=== PATIENT | female | born 1970 | race Caucasian/White ===

== ENCOUNTER 2016-10-14 09:20 | Inpatient (IN) | payer OTHER ==
[2016-10-10 11:51] VITALS: BMI 50.3
[2016-10-14] MEDS ORDERED: ceFAZolin SODIUM 1 GM VIAL ONE (11:21)
[2016-10-14] MEDS ORDERED: LIDOCAINE HCL/PF 2% SDV 5ML VIAL ONE (11:21)
[2016-10-14] MEDS ORDERED: MIDAZOLAM HCL 2 MG/2 ML SINGLE DOSE VIAL ONE (11:22)
[2016-10-14] MEDS ORDERED: ROCURONIUM BROMIDE 50 MG/5 ML VIAL ONE ×2 (11:22→12:59)
[2016-10-14] MEDS ORDERED: PROPOFOL 20 ML ONE ×2 (11:22)
--- NOTE | 2016-10-14 12:12 | HP ---
Admitting History and Physical - Admission Chief Complaint: Morbid Obesity History of Present Illness: 46 female with morbid obesity presents for a Robotic laparoscopic possible open vertical sleeve gastrectomy History Source: Patient Limitations to Obtaining History: No Limitations - Past Medical History ...LMP Comment: 2YRS AGO - Past Surgical History Past Surgical History: Yes: Cholecystectomy - Smoking History Smoking history: Never smoked - Alcohol/Substance Use Hx Alcohol Use: No Home Medications - Allergies Allergies/Adverse Reactions: Allergies Allergy/AdvReac Type Severity Reaction Status Date / Time No Known Allergies Allergy Verified 10/14/16 10:01 - Home Medications Home Medications: Ambulatory Orders Acetaminophen [Tylenol] 325 mg PO PRN PRN 10/10/16 Family Disease History - Family Disease History Family History: Unremarkable Review of Systems - Review of Systems Constitutional: denies: Chills, Fever Cardiovascular: denies: Chest Pain Respiratory: denies: Cough Gastrointestinal: reports: No Symptoms. denies: Abdominal Pain Genitourinary: reports: No Symptoms Neurological: reports: No Symptoms. denies: Change in LOC Pain Intensity: 0 Physical Examination Vital Signs: Vital Signs Temperature 97.9 F 10/14/16 09:59 Pulse Rate 100 H 10/14/16 09:59 Respiratory Rate 20 10/14/16 09:59 Blood Pressure 137/79 10/14/16 09:59 O2 Sat by Pulse Oximetry (%) 96 10/14/16 09:59 Constitutional: Yes: Calm, Obese Neck: Yes: WNL, Supple Cardiovascular: Yes: Regular Rate and Rhythm Respiratory: Yes: WNL, CTA Bilaterally Gastrointestinal: Yes: WNL, Soft, Abdomen, Obese Neurological: Yes: Alert, Oriented Problem List - Problems (1) Morbid obesity due to excess calories Code(s): E66.01 - MORBID (SEVERE) OBESITY DUE TO EXCESS CALORIES Assessment/Plan Morbid Obesity For Robotic laparoscopic possible open vertical sleeve gastrectomy Risks and benefits explained Understands and agrees
[2016-10-14] MEDS ORDERED: ceFAZolin SODIUM 1 GM VIAL IVPB ONE (12:24)
[2016-10-14] MEDS ORDERED: DEXAMETHASONE SOD PHOSPHATE 4 MG/1 ML VIAL ONE (13:04)
[2016-10-14] MEDS ORDERED: GLYCOPYRROLATE 0.2 MG/1 ML VIAL ONE (14:06)
[2016-10-14] MEDS ORDERED: NEOSTIGMINE METHYLSULFATE 0.5 MG/ML - 10 ML MDV ONE (14:06)
[2016-10-14] MEDS ORDERED: KETOROLAC TROMETHAMINE 30 MG/1 ML VIAL ONE (14:48)
--- NOTE | 2016-10-14 15:02 | OP ---
Operative Note - Note: Operative Date: 10/14/16 Pre-Operative Diagnosis: Morbid obesity Operation: Robotic sleeve gastrectomy Post-Operative Diagnosis: Same as Pre-op Surgeon: Joseph Peñaloza Pump Technician: Matias Barker Anesthesiologist/RUNNER MAN: Kathryn Tam Anesthesia: General Specimens Removed: Greater curvature of stomach Estimated Blood Loss (mls): 50 Drains, Volume Out (mls): 150 Fluid Volume Replaced (mls): 1,000 Operative Report Dictated: Yes
--- NOTE | 2016-10-14 15:03 | SURG ---
Surgery Real Time Analyst Note Real Time Analyst: Matias Barker PA-C Date of Service: 10/14/16 Diagnosis: Morbid obesity Procedure: Robotic sleeve gastrectomy I was present for the entirety of the operative procedure. For further detail, please refer to operative report. Visit type - Case Type Case Type: Scheduled Admission - New patient This patient is new to me today: Yes Date on this admission: 10/14/16
[2016-10-14] MEDS ORDERED: HYDROmorphone HCL CARPU-JECT 2 MG/1 ML DISP.SYRIN IVPUSH PRN (15:14)
[2016-10-14] MEDS ORDERED: ONDANSETRON 4 MG/2 ML VIAL IVPUSH PRN (15:14)
[2016-10-14] MEDS ORDERED: ACETAMINOPHEN 1000 MG/100 ML VIAL (NON FORMULARY) IVPB PRN (15:15)
[2016-10-14] MEDS ORDERED: LACTATED RINGERS SOLUTION 1,000 ML IV SCH (15:15)
[2016-10-14] MEDS ORDERED: BUPIVACAINE HCL/PF 0.5% (5MG/ML) 10 ML VIAL IJ ONE (15:17)
[2016-10-14] MEDS ORDERED: HYDROmorphone HCL CARPU-JECT 1 MG/1 ML DISP.SYRIN IVPB PRN (15:22)
[2016-10-14] MEDS ORDERED: ONDANSETRON 4 MG/2 ML VIAL IVPB SCH (15:30)
[2016-10-14] MEDS ORDERED: METOCLOPRAMIDE HCL INJECTION 10 MG/2 ML VIAL IVPB SCH (15:30)
[2016-10-14] MEDS ORDERED: SODIUM CHLORIDE 1,000 ML IV SCH ×2 (15:30→16:19)
[2016-10-14] MEDS: ACETAMINOPHEN 1000 MG/100 ML VIAL (NON FORMULARY) IVPB SCH ×2 (15:35→21:15)
[2016-10-14] MEDS ORDERED: ACETAMINOPHEN 1000 MG/100 ML VIAL (NON FORMULARY) IVPB SCH (16:19)
[2016-10-14 16:30] LABS: MCH 27.4 pg (25.7-33.7); MCHC 32.8 g/dl (32.0-36.0); MEAN CELL VOLUME 83.5 fl (80-96); MEAN PLT VOLUME 7.2 fl (7.5-11.1); PLATELET COUNT 273 K/MM3 (134-434); RDW 15.2 % (11.6-15.6); WHITE BLOOD COUNT 27.6 K/mm3 (4.0-10.0)
[2016-10-14 17:10] LABS: ALBUMIN 3.8 g/dl (3.4-5.0); BILIRUBIN,TOTAL 0.4 mg/dL (0.2-1.0); CALCIUM 8.5 mg/dL (8.5-10.1); TOT PROT 7.4 g/dl (6.4-8.2)
[2016-10-14 17:27] LABS: PLATELET ESTIMATE ADEQUATE (NORMAL)
[2016-10-14] MEDS ORDERED: ACETAMINOPHEN INJECTION 100 ML IVPB ONE (17:28)
[2016-10-14] MEDS ORDERED: METOCLOPRAMIDE HCL INJECTION 10 MG/2 ML VIAL ONE (17:28)
[2016-10-14] MEDS: METOCLOPRAMIDE HCL INJECTION 10 MG/2 ML VIAL IVPB SCH ×2 (17:47→22:54)
[2016-10-14] MEDS: HYDROmorphone HCL CARPU-JECT 1 MG/1 ML DISP.SYRIN IVPB PRN (20:18)
[2016-10-14] MEDS: ONDANSETRON 4 MG/2 ML VIAL IVPB SCH ×2 (20:45→21:05)
[2016-10-14] MEDS: FAMOTIDINE 20 MG/50 ML IVPB 50 ML IVPB SCH (21:15)
[2016-10-14] MEDS: ENOXAPARIN NA (PORCINE) 40 MG/0.4 ML DISP.SYRIN SQ SCH (21:15)
[2016-10-14 21:47] LABS: MCH 27.5 pg (25.7-33.7); MEAN CELL VOLUME 83.1 fl (80-96); PLATELET COUNT 264 K/MM3 (134-434); RDW 15.2 % (11.6-15.6); WHITE BLOOD COUNT 22.5 K/mm3 (4.0-10.0)
[2016-10-14] MEDS ORDERED: FAMOTIDINE 20 MG/50 ML IVPB 50 ML IVPB SCH (22:00)
[2016-10-14] MEDS ORDERED: ENOXAPARIN NA (PORCINE) 40 MG/0.4 ML DISP.SYRIN SQ SCH (22:00)
[2016-10-14 22:11] LABS: PLATELET ESTIMATE ADEQUATE (NORMAL)
[2016-10-15] MEDS: ONDANSETRON 4 MG/2 ML VIAL IVPB SCH ×6 (00:20→20:10)
--- NOTE | 2016-10-15 01:03 | SPEC ---
DATE OF OPERATION: 10/14/2016 SURGEON: Joseph Peñaloza M.D. EMPLOYEE COMMUNICATIONS SPECIALIST: Brian Thacker PREOPERATIVE DIAGNOSIS: Morbid obesity. POSTOPERATIVE DIAGNOSIS: Morbid obesity. PROCEDURE: Robotic vertical sleeve gastrectomy. SPECIMEN: Greater curvature of the stomach. ESTIMATED BLOOD LOSS: 150 mL. DRAINS: None. ANESTHESIA: GET. REASON FOR PROCEDURE: This is a 38-year-old female who presented to the office for evaluation for morbid obesity. After discussing the various choices, she decided to proceed with a robotic possible open vertical sleeve gastrectomy. RISKS AND BENEFITS: After describing the different options for management of weight loss, the patient decided to proceed with a robotic laparoscopic, possible open vertical sleeve gastrectomy. The patient was seen by the respective subspecialties and cleared for surgery. The risks and benefits of the procedure were explained. These included bleeding, infection, hernia, NM, DVT, PE, injury to surrounding structures including the liver, colon, bowel, spleen, esophagus, vessel injury, nerve injury, weight regain, gastric leak, staple line leak, sleeve leak, obstruction, vitamin deficiency, hair loss, and as some of the possible complications. The patient understood and signed informed consent. DESCRIPTION OF PROCEDURE: The patient was placed supine on the operating room table. The patient underwent general endotracheal intubation. A Loo catheter was inserted by the nursing staff. The arms were brought out at 90 degrees and secured. A foot board was placed, and the legs were secured laterally with padding. The abdomen was prepped and draped in the usual sterile fashion. Timeout was performed. An incision was made superior and to the left of the umbilicus. A Veress needle was inserted. Pneumoperitoneum was established. Subsequently, the Veress needle was removed. An 8-mm optical robotic trocar was placed under direct visualization with the laparoscope. Inspection of the abdominal cavity was performed. An 8-mm trocar was then placed in the left abdominal wall approximately 6 to 7 cm to the left of the initial trocar. A 12-mm robotic trocar was then placed in the right abdominal wall approximately 6 to 7 cm to the right of the initial trocar and an 8-mm robotic trocar placed 6 to 7 cm lateral to the 12-mm trocar. A stab wound was made in the subxiphoid area and a My clamp inserted and removed to dilate the tract. A Keiry liver retractor was inserted. The post was secured at the bedside by the nursing staff. The patient was placed in steep reverse Trendelenburg position, and the Keiry liver retractor was used to secure the liver towards the anterior abdominal wall. The robot was brought over the field and docked. Dissection was then performed at the console. The pylorus was identified and 6 cm proximal to it, the lesser sac was entered using the vessel sealer. From this point cephalad, all lateral attachments to the greater curvature of the stomach, including the short gastric vessels, were ligated using the vessel sealer towards the gastrosplenic and gastrophrenic ligaments. Once this was done in its entirety, all tubes within the nasal or oropharyngeal cavity, including a temperature probe, were confirmed to have been removed by Anesthesia. The bougie was then inserted by Anesthesia. Transection of the stomach was then begun, staying adjacent to the bougie but away from the angularis. Transection of the stomach was performed near the portion of the stomach where the lesser sac was entered. Two robotic green mendez were used at this location. Robotic blue mendez were then used for the remainder of the transection until the greater curvature of the stomach was fully transected. Again, this was done staying close to the bougie. Care was taken to stay away from the angle of His cephalad. The staple line was then inspected. Hemostasis was identified. A leak test was then performed. The stomach was clamped distally to the staple line. Irrigation solution was placed in the left upper quadrant and air insufflated by Anesthesia into the sleeve. No leaks were identified and no obstruction was identified. This was done throughout the entirety of the staple line. At this point, the irrigation solution was suctioned and again hemostasis noted. The robotic instruments were then removed. The robot was undocked and removed from the operative field. The 12-mm robotic trocar was removed and the specimen removed from this site using a sponge stick scott. The specimen was inspected and the Veress needle inserted. The specimen insufflated adequately and no leak was identified. The staple line was noted to be straight and intact. A Cristóbal-Navin device was then used to close the fascia with a 0 Vicryl suture at this site. The liver retractor was removed under direct visualization. Pneumoperitoneum was desufflated, and the fascial suture was secured. Hemostasis was noted at all incision sites, and Marcaine was injected at all incision sites. All incision sites were closed using 4-0 Biosyn. Sterile dressings were applied. The patient tolerated the procedure well and was transferred to the recovery room in stable condition, with the Loo catheter intact. The patient was sent to the telemetry unit for monitoring. Xin VACA/[id number]
[2016-10-15] MEDS: ACETAMINOPHEN 1000 MG/100 ML VIAL (NON FORMULARY) IVPB SCH ×2 (03:23→10:00)
[2016-10-15] MEDS: METOCLOPRAMIDE HCL INJECTION 10 MG/2 ML VIAL IVPB SCH ×4 (05:12→22:09)
[2016-10-15 07:00] LABS: MCH 27.5 pg (25.7-33.7); MEAN CELL VOLUME 83.4 fl (80-96); MEAN PLT VOLUME 7.4 fl (7.5-11.1); PLATELET COUNT 287 K/MM3 (134-434); RDW 15.4 % (11.6-15.6); WHITE BLOOD COUNT 19.4 K/mm3 (4.0-10.0)
[2016-10-15 07:05] LABS: ALBUMIN 3.5 g/dl (3.4-5.0); ANION GAP 10 (8-16); CALCIUM 8.1 mg/dL (8.5-10.1); CO2 24 mmol/L (21-32); GLUCOSE,RANDOM 121 mg/dL (74-106)
[2016-10-15 07:08] LABS: ALK PHOS 63 U/L (45-117); BILIRUBIN,TOTAL 0.5 mg/dL (0.2-1.0); CREATININE 0.8 mg/dL (0.55-1.02); SGOT/AST 38 U/L (15-37); SGPT/ALT 21 U/L (12-78); TOT PROT 6.9 g/dl (6.4-8.2)
[2016-10-15] MEDS: HYDROmorphone HCL CARPU-JECT 1 MG/1 ML DISP.SYRIN IVPB PRN (07:35)
--- NOTE | 2016-10-15 07:59 | PN ---
Progress Note, Physician Chief Complaint: Pt. pain controlled with IV Dilaudid, no GA complaints. - Current Medication List Current Medications: Active Medications Acetaminophen (Ofirmev Injection -) 1,000 mg IVPB Q6H PRN PRN Reason: FEVER OR PAIN Stop: 10/15/16 09:16 Acetaminophen (Ofirmev Injection -) 1,000 mg IVPB Q6H [facility] Stop: 10/15/16 09:31 Last Admin: 10/15/16 03:23 Dose: 1,000 mg Enoxaparin Sodium (Lovenox -) 40 mg SQ BID [facility] Last Admin: 10/14/16 21:15 Dose: 40 mg Hydromorphone HCl (Dilaudid Injection -) 2 mg IVPUSH [id number] PRN PRN Reason: PAIN Stop: 10/17/16 15:15 Last Admin: 10/14/16 15:30 Dose: 2 mg Hydromorphone HCl (Dilaudid Injection -) 1 mg IVPB Q3H PRN PRN Reason: PAIN Last Admin: 10/15/16 07:35 Dose: 1 mg Famotidine/Sodium Chloride (Pepcid 20 Mg Premixed Ivpb -) 50 mls @ 100 mls/hr IVPB BID [facility] Last Admin: 10/14/16 21:15 Dose: 100 mls/hr Sodium Chloride (Normal Saline -) 1,000 mls @ 150 mls/hr IV ASDIR [facility] Last Admin: 10/14/16 16:26 Dose: 190 mls Metoclopramide HCl (Reglan Injection -) 10 mg IVPB Q6H [facility] Last Admin: 10/15/16 05:12 Dose: 10 mg Ondansetron HCl (Zofran Injection) 4 mg IVPB Q4H [facility] Last Admin: 10/15/16 05:12 Dose: 4 mg - Objective Vital Signs: Vital Signs Temperature 99.7 F H 10/15/16 06:00 Pulse Rate 92 H 10/15/16 06:00 Respiratory Rate 20 10/15/16 06:00 Blood Pressure 148/84 10/15/16 06:00 O2 Sat by Pulse Oximetry (%) 95 10/14/16 21:00 Constitutional: Yes: Well Nourished, No Distress, Calm Musculoskeletal: Yes: WNL Neurological: Yes: WNL, Alert, Oriented ...Motor Strength: WNL Labs: CBC, BMP 10/15/16 05:35 10/15/16 05:35 Assessment/Plan POD#1 s/p Robotic laparoscopic gastric sleeve under GA. Doing well. D/C from anesthesia care.
[2016-10-15] MEDS: ENOXAPARIN NA (PORCINE) 40 MG/0.4 ML DISP.SYRIN SQ SCH ×2 (10:16→21:22)
[2016-10-15] MEDS: FAMOTIDINE 20 MG/50 ML IVPB 50 ML IVPB SCH ×2 (11:00→21:22)
[2016-10-15] MEDS ORDERED: SODIUM CHLORIDE 1,000 ML IV SCH (12:15)
--- NOTE | 2016-10-15 12:42 | PN ---
Progress Note (short form) - Note Progress Note: POD#1 Pt without complaints. No CP/SOB. She denies any nausea or emesis. No flatus. Vital Signs Period Temp Pulse Resp BP Sys/Vitale Pulse Ox Last 24 Hr 97.1 F-99.7 F 86-106 14-20 104-165/67-97 94-99 uop-700 ml clear/yellow urine PE; GEN: aoert, oob to chair and appears comfortable CV: RRR Lungs: CTA b/l anteriorly ABD: soft, non-distended, inc tenderness. Inc c/d/i with dermabond LE: Bola in place, no tenderness or swelling note b/l CBC, BMP 03/21/17 05:35 //17 05:35 UGI-no obstruction. dilated esophagus. A/P: 46 yo female, s/p robotic sleeve gastrectomy S/w Dr. Peñaloza and POD#1 diet ordered to start, may decrease IVF to 75ml/hr discontinue forbes for TOV Dr. Peñaloza ordered repeat cbc for later today to trend the WBC. DVT ppx with lovenox SQ <Yessica Craig - Last Filed: 10/15/16 13:05> - Note Progress Note: Agree POD 1 Robotic vertical sleeve gastrectomy No pain No nausea AVSS Abd soft WBC improved- 27->22->19 UGI- no leak/obstruction OOB D/C forbes CBC in am- if WBC stable, will D/C home <Joseph Peñaloza - Last Filed: 10/15/16 22:27> Problem List - Problems (1) Morbid obesity due to excess calories Code(s): E66.01 - MORBID (SEVERE) OBESITY DUE TO EXCESS CALORIES <Joseph Peñaloza - Last Filed: 10/15/16 22:27>
[2016-10-15] MEDS: ACETAMINOPHEN 325 MG TABLET (FP) PO PRN ×2 (14:02→20:15)
[2016-10-15] MEDS: oxyCODONE HCL 5 MG TABLET PO PRN ×2 (14:02→20:12)
[2016-10-15 15:03] LABS: MCH 27.4 pg (25.7-33.7); MCHC 32.3 g/dl (32.0-36.0); MEAN CELL VOLUME 84.6 fl (80-96); MEAN PLT VOLUME 6.9 fl (7.5-11.1); PLATELET COUNT 233 K/MM3 (134-434); RDW 15.3 % (11.6-15.6); WHITE BLOOD COUNT 19.1 K/mm3 (4.0-10.0)
[2016-10-16] MEDS: ONDANSETRON 4 MG/2 ML VIAL IVPB SCH ×3 (00:36→08:17)
[2016-10-16] MEDS: oxyCODONE HCL 5 MG TABLET PO PRN (03:13)
[2016-10-16] MEDS: ACETAMINOPHEN 325 MG TABLET (FP) PO PRN (03:17)
[2016-10-16] MEDS: METOCLOPRAMIDE HCL INJECTION 10 MG/2 ML VIAL IVPB SCH (04:22)
[2016-10-16 06:11] VITALS: PULSE 85
[2016-10-16 07:32] LABS: BASOPHIL 0.4 % (0-2.0); EOSINOPHIL 1.3 % (0-4.5); MCHC 33.2 g/dl (32.0-36.0); MEAN CELL VOLUME 84.4 fl (80-96); MEAN PLT VOLUME 7.1 fl (7.5-11.1); NEUTROPHILS 75.2 % (42.8-82.8); PLATELET COUNT 230 K/MM3 (134-434); RDW 15.4 % (11.6-15.6); WHITE BLOOD COUNT 15.7 K/mm3 (4.0-10.0)
--- NOTE | 2016-10-16 08:47 | DS ---
Physical Examination Vital Signs: Vital Signs Temperature 98.0 F 10/16/16 06:00 Pulse Rate 85 10/16/16 06:00 Respiratory Rate 20 10/16/16 06:00 Blood Pressure 138/84 10/16/16 06:00 O2 Sat by Pulse Oximetry (%) 95 10/15/16 21:00 Constitutional: Yes: Calm Neck: Yes: Supple Cardiovascular: Yes: Regular Rate and Rhythm Respiratory: Yes: CTA Bilaterally Gastrointestinal: Yes: Soft Wound/Incision: Yes: Clean/Dry Neurological: Yes: Alert, Oriented Labs: CBC, BMP 10/16/16 06:00 10/15/16 05:35 Discharge Summary Reason For Visit: MORBID OBESITY Current Active Problems Morbid obesity due to excess calories (Acute) Procedures: Principal: Robotic vertical sleeve gastrectomy Condition: Stable - Instructions Diet, Activity, Other Instructions: Sultana Peñaloza M.D. [address] [place] [address] Robotic, Bariatric and General Surgery Postoperative Instructions for Bariatric Surgery Activity: Resume normal everyday activity as tolerated. You may walk and climb stairs without any limitation. We encourage you to walk as often as you can Do not lift anything more than 10 pounds for 8 weeks. At that time, you can return to full activity, including the gym, without limitation. Do not drive a motor vehicle while taking prescribes narcotic pain medication. Wound Care: If you have a bandage in place, leave it on for 3 days. At that time you may remove the outer bandage. If there are strips of tape on the skin after removing the outer bandage, leave them in place. They will fall off by themselves. Do not remove them. If there is clear glue on the skin after removing the outer bandage, leave it in place. Do not pick at it or peel it off. You may shower after taking the outer bandage off, 3 days after your surgery. If incisions become red, warm or open, please call the office. Diet: Continue a sugar-free, non-carbonated clear liquid diet three times a day for the first week-Stage 1 diet. In addition, you should drink 8 ounces of water every hour. When drinking, sips should be slow and steady, not large and quick. After the first week, call the office to be advanced to the next dietary stage. Do not advance stages until instructed by , or one of the Nurse Practitioners. You diet will be advanced over the phone each week. Medications/Pain Management: You may resume previous medications unless told otherwise. The pills may be swallowed whole or broken if scored. You may take the prescribed narcotic pain medication as needed. If the narcotic medication is not needed for pain control, you may take Tylenol. Avoid all other pain medications including Advil, Ibuprofen, Motrin, Aspirin, Naprosyn, Aleve, Celebrex. You will receive Pepcid. Please take this twice a day as prescribed. Dizziness,Headaches/Gas Pain: Make sure you are getting enough fluids daily. Patients on diuretics or water pills may need medication adjusted. Some fluids such as broth or Gatorade may help. Gas pains are common in the first few weeks after surgery. At times they can be worse than surgical pain. Walking can help. You can also use Mylanta, Maalox, or Gas-X. Vomiting/Nausea: This may occur if you eat too fast, don't chew, or eat too much. Go back to fluids. If the vomiting or nausea persists, call the office. Constipation/Diarrhea: You may experience a change in bowel habits. Many things affect this, including a decrease in food intake, not enough fluid and taking pain medication. Some people experience diarrhea after the barium swallow in x-ray. If either persist, call the office. Follow up: Call the office at [phone] for an appointment 2 weeks after you surgical procedure. Disposition: HOME - Home Medications Comprehensive Discharge Medication List: Ambulatory Orders Acetaminophen [Tylenol] 325 mg PO PRN PRN 10/10/16 Famotidine [Pepcid] 20 mg PO BID #60 tablet 10/14/16 Oxycodone HCl/Acetaminophen [Percocet 5-325 mg Tablet] 1 - 2 tab PO Q6H #28 tab MDD 4 10/14/16
[2016-10-16] MEDS: FAMOTIDINE 20 MG/50 ML IVPB 50 ML IVPB SCH (09:30)
[2016-10-16] MEDS: ENOXAPARIN NA (PORCINE) 40 MG/0.4 ML DISP.SYRIN SQ SCH (09:31)
[2016-10-16 09:36] VITALS: BP 108/62; TEMP 97.6
--- NOTE | 2016-10-16 15:03 | PATH ---
Surgical Pathology Report Patient Name: CHERRIE PARRA [facility]. Rec. #: [id number] /Age/Gender: 1970 (Age: 46) / F Account: [id number] Location: 4 PEDS/ADOL Taken: 10/14/2016 Received: 10/15/2016 Reported: 10/16/2016 Physicians: Joseph Peñaloza M.D. Specimen(s) Received PORTION OF STOMACH GREATER CURVATURE Clinical History Morbid obesity Final Diagnosis STOMACH, GREATER CURVATURE, ROBOTIC GASTRIC SLEEVE: PORTION OF STOMACH WITH MODERATE CHRONIC GASTRITIS. IMMUNOSTAIN FOR H. PYLORI IS NEGATIVE FOR ORGANISMS. Electronically Signed Rudolph Castillo M.D. Gross Description Received in formalin, labeled "greater curvature of stomach" is a 191 gram, 20.0 x 6.5 x 3.0 cm. portion of stomach with a stapled margin of resection. The serosa is medina-chairez with minimal attached fat. The lumen contains red blood. The mucosa is medina-pink with focally flattened folds. No mucosal masses are identified. Drying Room Operator sections are submitted in one cassette. /10/15/2016 [facility]10/15/2016
== END 2016-10-16 10:22 | disposition home or self-care (01) | DRG 403 ==
LOC: JSAMEDAYSX 09:20 → J4S 18:00
PROVIDERS: ADMIT Surgery; ATTEND Surgery
PROC: 8E0W4CZ Robotic Assisted Procedure of Trunk Region, Percutaneous Endoscopic Approach (ICD-10-PCS; 2016-10-14)
PROC: 0DB64Z3 Excision of Stomach, Percutaneous Endoscopic Approach, Vertical (ICD-10-PCS; principal; 2016-10-14 12:00)
DX: E66.01 Morbid (severe) obesity due to excess calories (principal); Z68.43 Body mass index [BMI] 50.0-59.9, adult; Z87.442 Personal history of urinary calculi
CPT/HCPCS: 36415; 74241-TC; 80053; 85025; 85027; 86850; 86900; 86901; 88305-TC; 94010; 94760